=== PATIENT | female | born 1995 | race Caucasian/White ===

== ENCOUNTER → 2018-01-10 | Outpatient (CLI) | payer MEDICAID, SELFPAY, OTHER ==
[2018-01-10 12:44] LABS: BASO % 0.3 % (0.0-1.0); EOS # 0.1 10^3/uL (0.0-0.50); EOS % 0.5 % (0.0-3.0); HEMOGLOBIN 12.1 g/dl (12.0-15.5); IMMATURE GRANULOCYTE % 0.9 % (0-3.0); LYMPH # 2.5 10^3/uL (1.5-6.5); LYMPH % 25.3 % (24.0-44.0); MEAN CORPUSCULAR HEMOGLOBIN 32.5 pg (27.0-33.0); MEAN CORPUSCULAR HGB CONC 33.6 g/dl (32.0-36.5); MEAN CORPUSCULAR VOLUME 96.8 fl (80.0-96.0); MONO # 0.5 10^3/uL (0.0-0.8); MONO % 4.7 % (0.0-5.0); NEUTROPHILS # 6.8 10^3/uL (1.8-7.7); NEUTROPHILS % 68.3 % (36.0-66.0); PLATELET COUNT, AUTOMATED 264 10^3/uL (150-450); RED BLOOD COUNT 3.72 10^6/uL (4.00-5.40); RED CELL DISTRIBUTION WIDTH 12.1 % (11.5-14.5)
[2018-01-10 14:28] LABS: CHLAMYDIA DNA AMPLIFICATION POSITIVE (NEGATIVE)
[2018-01-12 11:31] LABS: RUBELLA IgG QUALITATIVE IMMUNE (IMMUNE)
[2018-01-12 11:35] LABS: HBsAg Prenatal NEGATIVE (NEGATIVE)
[2018-01-12 12:01] LABS: HIV 1&2 SCREEN CENTAUR NEGATIVE (NEGATIVE)
[2018-01-12 15:29] LABS: GC DNA AMPLIFICATION NEGATIVE (NEGATIVE)
[2018-01-12 15:29] LABS: HEPATITIS C VIRUS ABY INDEX 0.1 INDEX (<0.8)
== END ==
LOC: M LAB 11:53
DX: Z34.82 Encounter for supervision of other normal pregnancy, second trimester (principal); Z36.89 Encounter for other specified antenatal screening
CPT/HCPCS: 86762

== ENCOUNTER → 2018-02-16 | Outpatient (REF) | payer MEDICAID, OTHER ==
[2018-02-16 23:11] LABS: CHLAMYDIA DNA AMPLIFICATION NEGATIVE (NEGATIVE); GC DNA AMPLIFICATION NEGATIVE (NEGATIVE)
== END ==
LOC: M LAB REF 17:41
DX: Z34.82 Encounter for supervision of other normal pregnancy, second trimester (principal); Z11.3 Encounter for screening for infections with a predominantly sexual mode of transmission (principal); Z36.89 Encounter for other specified antenatal screening
CPT/HCPCS: 87591

== ENCOUNTER → 2018-02-23 | Outpatient (CLI) | payer MEDICAID, OTHER | LOC: M RAD 08:26 | DX: Z36.9 Encounter for antenatal screening, unspecified (principal); Z3A.25 25 weeks gestation of pregnancy | CPT/HCPCS: 76811 ==

== ENCOUNTER → 2018-03-16 | Outpatient (CLI) | payer OTHER ==
[2018-03-16 17:26] LABS: BASO % 0.2 % (0.0-1.0); EOS # 0.1 10^3/uL (0.0-0.50); EOS % 0.7 % (0.0-3.0); HEMATOCRIT 31.6 % (36.0-47.0); HEMOGLOBIN 10.9 g/dl (12.0-15.5); IMMATURE GRANULOCYTE % 0.3 % (0-3.0); LYMPH # 2.6 10^3/uL (1.5-6.5); LYMPH % 24.7 % (24.0-44.0); MEAN CORPUSCULAR HEMOGLOBIN 32.7 pg (27.0-33.0); MEAN CORPUSCULAR HGB CONC 34.5 g/dl (32.0-36.5); MEAN CORPUSCULAR VOLUME 94.9 fl (80.0-96.0); MONO # 0.6 10^3/uL (0.0-0.8); MONO % 5.3 % (0.0-5.0); NEUTROPHILS # 7.1 10^3/uL (1.8-7.7); NEUTROPHILS % 68.8 % (36.0-66.0); PLATELET COUNT, AUTOMATED 249 10^3/uL (150-450); RED BLOOD COUNT 3.33 10^6/uL (4.00-5.40); RED CELL DISTRIBUTION WIDTH 12.3 % (11.5-14.5); WHITE BLOOD COUNT 10.4 10^3/uL (4.0-10.0)
[2018-03-16 17:29] LABS: GLUCOSE CHALLENGE TEST 1 HOUR 76 MG/DL (LESS THAN 140)
[2018-03-17 08:45] LABS: RH ONLY RHOGAM 1 1
== END ==
LOC: M LAB 15:26
PROVIDERS: Pediatrics
DX: Z34.82 Encounter for supervision of other normal pregnancy, second trimester (principal); Z3A.00 Weeks of gestation of pregnancy not specified
CPT/HCPCS: 82950

== ENCOUNTER → 2018-05-06 | Outpatient (REF) | payer OTHER ==
[2018-05-06 15:53] LABS: CHLAMYDIA DNA AMPLIFICATION NEGATIVE (NEGATIVE); GC DNA AMPLIFICATION NEGATIVE (NEGATIVE)
== END ==
LOC: M LAB REF 12:54
DX: Z34.83 Encounter for supervision of other normal pregnancy, third trimester (principal); Z36.89 Encounter for other specified antenatal screening
CPT/HCPCS: 87591

== ENCOUNTER → 2018-05-13 | Outpatient (REF) | payer OTHER | LOC: M LAB REF 17:12 | DX: Z36.89 Encounter for other specified antenatal screening (principal) | CPT/HCPCS: 87186 ==

== ENCOUNTER → 2018-10-05 | Outpatient (REF) | payer OTHER ==
[~2018-10-05] MED LIST: MOTR200T44 PO; PRENTAB55 PO; TYLE325T5 PO
== END ==
LOC: M LAB REF 17:29
PROVIDERS: ATTEND Advanced Practice Midwife
DX: Z12.4 Encounter for screening for malignant neoplasm of cervix (principal)

== ENCOUNTER → 2019-06-24 | Outpatient (REF) | payer OTHER ==
[~2019-06-24] MED LIST changes: +ONDA4TAB6 PO; +PREVTAB2 PO
[2019-06-24 17:18] LABS: INFLUENZA A AMPLIFICATION NEGATIVE (NEGATIVE); INFLUENZA B AMPLIFICATION NEGATIVE (NEGATIVE)
== END ==
LOC: M LAB REF 16:24
PROVIDERS: ATTEND Physician Assistant
DX: J11.1 Influenza due to unidentified influenza virus with other respiratory manifestations (principal)

== ENCOUNTER 2019-06-25 04:01 | Emergency (ER) | payer OTHER ==
[~2019-06-25] VITALS: Ht 149.9 cm; Wt 62.7 kg
[~2019-06-25 04:01] MED LIST changes: -ONDA4TAB6 PO; -PREVTAB2 PO
[2019-06-25] MEDS ORDERED: PREVTAB2 PO (04:08)
[2019-06-25 04:58] LABS: INFLUENZA A AMPLIFICATION NEGATIVE (NEGATIVE); INFLUENZA B AMPLIFICATION NEGATIVE (NEGATIVE)
[2019-06-25] MEDS ORDERED: KETOROLAC 30 MG/ML VIAL (J1885) IV ONE (06:30)
[2019-06-25] MEDS ORDERED: NS 1,000 ML IV ONE (06:30)
[2019-06-25] MEDS ORDERED: ONDANSETRON 4MG/2ML VIAL (J2405) IV ONE (06:30)
[2019-06-25 06:49] LABS: BASO % 0.2 % (0.0-1.0); HEMATOCRIT 39.6 % (36.0-47.0); HEMOGLOBIN 13.2 g/dl (12.0-15.5); LYMPH # 0.8 10^3/uL (1.5-5.0); MEAN CORPUSCULAR HEMOGLOBIN 31.4 pg (27.0-33.0); MEAN CORPUSCULAR HGB CONC 33.3 g/dl (32.0-36.5); MEAN CORPUSCULAR VOLUME 94.3 fl (80.0-96.0); MONO # 0.5 10^3/uL (0.0-0.8); MONO % 5.1 % (0.0-5.0); NEUTROPHILS # 8.6 10^3/uL (1.5-8.5); NEUTROPHILS % 86.1 % (36.0-66.0); PLATELET COUNT, AUTOMATED 246 10^3/uL (150-450); WHITE BLOOD COUNT 9.9 10^3/uL (4.0-10.0)
[2019-06-25 07:09] LABS: BLOOD UREA NITROGEN 7 MG/DL (7-18); CALCIUM LEVEL 8.5 MG/DL (8.5-10.1); CARBON DIOXIDE LEVEL 23 MEQ/L (21-32); CHLORIDE LEVEL 103 MEQ/L (98-107); CREATININE FOR GFR 0.93 MG/DL (0.55-1.30); GLOMERULAR FILTRATION RATE > 60.0 (>60); GLUCOSE, FASTING 136 MG/DL (70-100); SODIUM LEVEL 137 MEQ/L (136-145)
--- NOTE | 2019-06-25 07:25 | REP ---
Clinical: Cough and shortness of breath. Technique: PA and lateral. Findings: Mediastinum and cardiac silhouette are normal. No focal consolidation. No effusion. No pneumothorax. Skeletal structures are intact. Impression: No focal consolidation or effusion. Electronically Signed by Mateus Reynolds MD 06/25/2019 07:17 A
[2019-06-25] MEDS ORDERED: ONDA4TAB6 PO (07:57)
[2019-06-25 08:58] VITALS: BP 128/72
== END 2019-06-25 09:04 | disposition home or self-care (01) ==
LOC: M ED 04:01
DX: J06.9 Acute upper respiratory infection, unspecified (principal); Z79.3 Long term (current) use of hormonal contraceptives
CPT/HCPCS: 71046; 80048; 84702; 85025; 87631; 96361; 96374; 96375; 99284; J1885; J2405

== ENCOUNTER → 2020-04-25 | Outpatient (REF) | payer OTHER ==
[~2020-04-25] MED LIST changes: +ONDA4TAB6 PO; +PREVTAB2 PO
[2020-04-25 16:49] LABS: BASO % 0.6 % (0.0-1.0); EOS # 0.1 10^3/uL (0.0-0.5); EOS % 1.6 % (0.0-3.0); HEMATOCRIT 40.1 % (36.0-47.0); HEMOGLOBIN 13.2 g/dl (12.0-15.5); LYMPH # 2.8 10^3/uL (1.5-5.0); LYMPH % 39.6 % (24.0-44.0); MEAN CORPUSCULAR HEMOGLOBIN 30.8 pg (27.0-33.0); MEAN CORPUSCULAR HGB CONC 32.9 g/dl (32.0-36.5); MEAN CORPUSCULAR VOLUME 93.7 fl (80.0-96.0); MONO # 0.5 10^3/uL (0.0-0.8); MONO % 6.3 % (0.0-5.0); NEUTROPHILS # 3.7 10^3/uL (1.5-8.5); NEUTROPHILS % 51.5 % (36.0-66.0); PLATELET COUNT, AUTOMATED 332 10^3/uL (150-450); RED BLOOD COUNT 4.28 10^6/uL (4.00-5.40); WHITE BLOOD COUNT 7.1 10^3/uL (4.0-10.0)
[2020-04-25 17:26] LABS: ALBUMIN 3.9 GM/DL (3.2-5.2); ALT/SGPT 22 U/L (12-78); BILIRUBIN,TOTAL 0.4 MG/DL (0.2-1.0); BLOOD UREA NITROGEN 10 MG/DL (7-18); CALCIUM LEVEL 9.1 MG/DL (8.5-10.1); CARBON DIOXIDE LEVEL 27 MEQ/L (21-32); CHLORIDE LEVEL 104 MEQ/L (98-107); CREATININE FOR GFR 0.84 MG/DL (0.55-1.30); GLOMERULAR FILTRATION RATE > 60.0 (>60); GLUCOSE, FASTING 89 MG/DL (70-100); POTASSIUM SERUM 4.2 MEQ/L (3.5-5.1); SODIUM LEVEL 138 MEQ/L (136-145); TOTAL PROTEIN 7.8 GM/DL (6.4-8.2)
== END ==
LOC: M LAB REF 16:24
PROVIDERS: ATTEND Physician Assistant
DX: R51.9 Headache, unspecified (principal)

== ENCOUNTER 2020-10-11 16:28 | Emergency (ER) | payer OTHER ==
[~2020-10-11] VITALS: Ht 144.8 cm; Wt 64.6 kg
[2020-10-11 18:10] VITALS: BP 162/87
== END 2020-10-11 18:13 | disposition home or self-care (01) ==
LOC: M ED 16:28
DX: L72.0 Epidermal cyst (principal); Z79.3 Long term (current) use of hormonal contraceptives; Z80.8 Family history of malignant neoplasm of other organs or systems; Z83.3 Family history of diabetes mellitus

== ENCOUNTER → 2021-01-04 | Outpatient (REF) | payer OTHER | LOC: M LAB REF 17:32 | PROVIDERS: ATTEND Surgery | DX: L72.11 Pilar cyst (principal) ==

== ENCOUNTER → 2021-02-08 | Outpatient (REF) | payer OTHER | LOC: M LAB REF 16:26 | PROVIDERS: ATTEND Surgery | DX: L72.11 Pilar cyst (principal) ==

== ENCOUNTER → 2021-11-14 | Outpatient (REF) ==
[2021-11-16 06:08] LABS: HERPES ZOSTER, VARICELLA IgG 281 index (Immune >165); RUBEOLA IgG ANTIBODY >300.0 AU/mL (Immune >16.4)
== END ==
LOC: M LAB 15:46
PROVIDERS: ATTEND Nurse Practitioner Family
DX: Z00.00 Encounter for general adult medical examination without abnormal findings (principal)

== ENCOUNTER 2022-10-18 08:01 | Day surgery (SDC) | payer OTHER ==
[~2022-10-18] VITALS: Ht 147.3 cm; Wt 64.4 kg
[~2022-10-18 08:01] MED LIST changes: +ARIP1TAB6 PO; +HYDR50TA70 PO; +PRAZ1CAP PO; +TEST200I14 IM; +TRAZ-257 PO; +ceFAZolin SOD 2 GM in IV 1 EA IV ONE
[2022-10-18] MEDS ORDERED: LR 1,000 ML IV SCH ×2 (08:20→11:55)
[2022-10-18 08:42] LABS: HEMOGLOBIN 16.4 g/dl (12.0-15.5); MEAN CORPUSCULAR HEMOGLOBIN 31.6 pg (27.0-33.0); MEAN CORPUSCULAR HGB CONC 34.2 g/dl (32.0-36.5); MEAN CORPUSCULAR VOLUME 92.5 fl (80.0-96.0); PLATELET COUNT, AUTOMATED 296 10^3/uL (150-450); RED BLOOD COUNT 5.19 10^6/uL (4.00-5.40); WHITE BLOOD COUNT 8.1 10^3/uL (4.0-10.0)
[2022-10-18] MEDS ORDERED: SCOPOLAMINE 1MG TRANSDERMAL PATCH TOP ONE (09:15)
[2022-10-18] MEDS ORDERED: KETOROLAC 60MG 2ML VIAL As Ordered ONE (09:23)
[2022-10-18] MEDS ORDERED: ROCURONIUM BROMIDE 50MG/5ML VIAL As Ordered ONE (09:23)
[2022-10-18] MEDS ORDERED: MIDAZOLAM INJ 2MG/2ML VIAL As Ordered ONE (09:23)
[2022-10-18] MEDS ORDERED: LIDOCAINE 2% 100MG/5ML SDV (FOR ANES.) As Ordered ONE (09:23)
[2022-10-18] MEDS ORDERED: propofoL 200 MG/20 ML VIAL As Ordered ONE (09:23)
[2022-10-18] MEDS ORDERED: SUGAMMADEX SODIUM 500 MG/5 ML VIAL (BRIDION) As Ordered ONE (09:23)
[2022-10-18] MEDS ORDERED: ONDANSETRON 4MG 2ML VIAL As Ordered ONE (09:23)
[2022-10-18] MEDS ORDERED: fentaNYL 100 MCG/2 ML INJECTION As Ordered ONE (09:24)
[2022-10-18] MEDS ORDERED: BUPIVACAINE HCL 0.25% 30ML VIAL As Ordered ONE (09:54)
[2022-10-18] MEDS ORDERED: HYDROmorphone HCL 2MG/ML 1ML VIAL As Ordered ONE (09:54)
[2022-10-18] MEDS ORDERED: METOCLOPRAMIDE INJ 10MG/2ML VIAL As Ordered ONE (10:31)
[2022-10-18] MEDS ORDERED: fentaNYL 100 MCG/2 ML INJECTION IV PRN (11:55)
[2022-10-18] MEDS ORDERED: oxyCODONE 5MG TAB PO PRN (11:55)
[2022-10-18] MEDS ORDERED: HYDROMORPHONE HCL 0.5 MG/ 0.5 ML SYRINGE IV PRN (11:55)
[2022-10-18] MEDS ORDERED: ONDANSETRON 4MG 2ML VIAL IV PRN (11:55)
[2022-10-18] MEDS ORDERED: PERCOCET 5MG/325MG TAB PO PRN (12:50)
[2022-10-18 13:30] VITALS: BP 129/65
[2022-10-18] MEDS ORDERED: KETOROLAC 30 MG/ML 1ML VIAL IV SCH (18:00)
[2022-10-19] MEDS ORDERED: OXYC1TAB23 PO (11:19)
== END 2022-10-18 13:40 | disposition home or self-care (01) ==
LOC: M SDC 08:01
PROVIDERS: ATTEND Obstetrics & Gynecology
DX: F64.9 Gender identity disorder, unspecified (principal); F43.10 Post-traumatic stress disorder, unspecified; F41.9 Anxiety disorder, unspecified; F32.A Depression, unspecified; Z87.891 Personal history of nicotine dependence; Z79.899 Other long term (current) drug therapy
CPT/HCPCS: 36415; 58571; 81025; 85027; 86850; 86900; 86901; 88307; J0690; J1100; J1170; J1885; J2250; J2405; J2765; J3010; S2900

== ENCOUNTER 2022-12-24 16:54 | Emergency (ER) | payer OTHER ==
[~2022-12-24] VITALS: Ht 147.3 cm; Wt 63.6 kg
[2022-12-24 16:54] VITALS: BP 128/81; TEMP 98; O2SAT 96
[~2022-12-24 16:54] MED LIST changes: +OXYC1TAB23 PO; -ceFAZolin SOD 2 GM in IV 1 EA IV ONE
== END 2022-12-24 21:40 | disposition left against medical advice (07) ==
LOC: M ED 16:54
DX: Z53.21 Procedure and treatment not carried out due to patient leaving prior to being seen by health care provider (principal)

== ENCOUNTER 2023-09-08 23:09 | Emergency (ER) | payer OTHER ==
[~2023-09-08] VITALS: Ht 144.8 cm; Wt 66.5 kg
[2023-09-09] MEDS ORDERED: IBUP-1022 PO (01:28)
[2023-09-09 01:51] VITALS: BP 139/81; TEMP 98.7; O2SAT 99
[2023-09-09] MEDS: IBUPROFEN 600MG TAB PO ONE (02:15)
== END 2023-09-09 02:36 | disposition home or self-care (01) ==
LOC: M ED 23:09
DX: S93.402A Sprain of unspecified ligament of left ankle, initial encounter (principal); W09.8XXA Fall on or from other playground equipment, initial encounter; F41.9 Anxiety disorder, unspecified; F32.A Depression, unspecified; Z79.899 Other long term (current) drug therapy; Z79.83 Long term (current) use of bisphosphonates; Y92.838 Other recreation area as the place of occurrence of the external cause; Y93.89 Activity, other specified; Y99.9 Unspecified external cause status; Z79.891 Long term (current) use of opiate analgesic

== ENCOUNTER → 2023-12-29 | Outpatient (REF) | payer OTHER ==
[~2023-12-29] MED LIST changes: +IBUP-1022 PO; +ONDA-282 PO; -ONDA4TAB6 PO
[2023-12-30 08:01] LABS: ALBUMIN 4.5 G/DL (3.2-5.2); ALKALINE PHOSPHATASE 86 U/L (46-116); ALT/SGPT 23 U/L (7.0-40); AST/SGOT 17 U/L (<34); BILIRUBIN,TOTAL 0.7 MG/DL (0.3-1.2); BLOOD UREA NITROGEN 15 MG/DL (9-23); CALCIUM LEVEL 9.7 MG/DL (8.5-10.1); CARBON DIOXIDE LEVEL 29 MMOL/L (20-31); CHLORIDE LEVEL 105 MMOL/L (98-107); CREATININE FOR GFR 1.08 MG/DL (0.70-1.30); GLOMERULAR FILTRATION RATE > 60.0 (>60); GLUCOSE, FASTING 87 MG/DL (60-100); POTASSIUM SERUM 4.5 MMOL/L (3.5-5.1); SODIUM LEVEL 142 MMOL/L (136-145); TOTAL PROTEIN 7.4 G/DL (5.7-8.2)
[2023-12-30 08:04] LABS: THYROID STIMULATING HORMONE 1.213 uIU/ML (0.55-4.78)
[2023-12-30 09:05] LABS: HEMOGLOBIN A1c 5.1 % (4.0-6.0)
== END ==
LOC: M LAB REF 15:15
PROVIDERS: ATTEND Pediatrics
DX: E66.9 Obesity, unspecified (principal)

== ENCOUNTER → 2024-03-03 | Outpatient (CLI) | payer OTHER ==
[2024-03-03 16:54] LABS: BASO % 0.4 % (0.0-1.0); EOS # 0.1 10^3/uL (0.0-0.5); EOS % 1.7 % (0.0-3.0); HEMATOCRIT 44.9 % (42.0-52.0); HEMOGLOBIN 15.8 g/dl (13.5-17.5); LYMPH # 2.8 10^3/uL (1.5-5.0); LYMPH % 39.1 % (24.0-44.0); MEAN CORPUSCULAR HEMOGLOBIN 32.2 pg (27.0-33.0); MEAN CORPUSCULAR HGB CONC 35.2 g/dl (32.0-36.5); MEAN CORPUSCULAR VOLUME 91.4 fl (80.0-96.0); MONO # 0.5 10^3/uL (0.0-0.8); MONO % 7.2 % (2.0-8.0); NEUTROPHILS # 3.6 10^3/uL (1.5-8.5); NEUTROPHILS % 51.2 % (36.0-66.0); PLATELET COUNT, AUTOMATED 278 10^3/uL (150-450); RED BLOOD COUNT 4.91 10^6/uL (4.30-6.10); WHITE BLOOD COUNT 7.1 10^3/uL (4.0-10.0)
[2024-03-03 17:22] LABS: ALBUMIN 4.4 G/DL (3.2-5.2); ALKALINE PHOSPHATASE 91 U/L (46-116); ALT/SGPT 26 U/L (7.0-40); AST/SGOT 19 U/L (<34); BILIRUBIN,TOTAL 0.4 MG/DL (0.3-1.2); BLOOD UREA NITROGEN 13 MG/DL (9-23); CALCIUM LEVEL 9.9 MG/DL (8.5-10.1); CARBON DIOXIDE LEVEL 28 MMOL/L (20-31); CHLORIDE LEVEL 105 MMOL/L (98-107); CREATININE FOR GFR 0.86 MG/DL (0.70-1.30); GLOMERULAR FILTRATION RATE > 60.0 (>60); GLUCOSE, FASTING 110 MG/DL (60-100); MAGNESIUM LEVEL 2.1 MG/DL (1.8-2.4); POTASSIUM SERUM 4.2 MMOL/L (3.5-5.1); SODIUM LEVEL 137 MMOL/L (136-145); TOTAL PROTEIN 7.7 G/DL (5.7-8.2)
[2024-03-03 17:23] LABS: IRON (FE) 72 UG/DL (65-175); THYROID STIMULATING HORMONE 0.816 uIU/ML (0.55-4.78)
[2024-03-03 17:24] LABS: FERRITIN 90.8 NG/ML (10.5-307.3); FREE T4 0.98 NG/DL (0.89-1.76); TOTAL 25(OH) VITAMIN D 30.1 NG/ML (20.0-100.0)
[2024-03-03 17:25] LABS: VITAMIN B12 LEVEL 396 PG/ML (211-911)
== END ==
LOC: M LAB 16:01
PROVIDERS: ATTEND Nurse Practitioner Psychiatric/Mental Health
DX: Z79.899 Other long term (current) drug therapy (principal)

== ENCOUNTER → 2024-03-26 | Outpatient (CLI) | payer OTHER ==
[2024-03-26 11:24] LABS: HEMATOCRIT 47.3 % (42.0-52.0); HEMOGLOBIN 16.4 g/dl (13.5-17.5); MEAN CORPUSCULAR HEMOGLOBIN 32.3 pg (27.0-33.0); MEAN CORPUSCULAR HGB CONC 34.7 g/dl (32.0-36.5); MEAN CORPUSCULAR VOLUME 93.1 fl (80.0-96.0); PLATELET COUNT, AUTOMATED 295 10^3/uL (150-450); RED BLOOD COUNT 5.08 10^6/uL (4.30-6.10); WHITE BLOOD COUNT 6.1 10^3/uL (4.0-10.0)
[2024-03-26 11:51] LABS: BLOOD UREA NITROGEN 14 MG/DL (9-23); CALCIUM LEVEL 10.2 MG/DL (8.5-10.1); CARBON DIOXIDE LEVEL 30 MMOL/L (20-31); CHLORIDE LEVEL 107 MMOL/L (98-107); CREATININE FOR GFR 1.24 MG/DL (0.70-1.30); GLOMERULAR FILTRATION RATE > 60.0 (>60); GLUCOSE, FASTING 94 MG/DL (60-100); POTASSIUM SERUM 4.4 MMOL/L (3.5-5.1); SODIUM LEVEL 142 MMOL/L (136-145)
== END ==
LOC: M LAB 10:55
PROVIDERS: ATTEND Physician Assistant
DX: N62 Hypertrophy of breast (principal)

== ENCOUNTER 2024-04-08 05:47 | Observation (INO) | payer OTHER ==
[~2024-04-08] VITALS: Ht 144.8 cm; Wt 64.0 kg
[2024-04-08] VITALS (9 sets, daily range): BP systolic 117–124; BP diastolic 64–80; TEMP 97.2–97.7; O2SAT 91–99
[~2024-04-08 05:47] MED LIST changes: +VITA100093 PO; +WELLTAB38 PO
[2024-04-08 06:44] LABS: HEMATOCRIT 46.2 % (42.0-52.0); MEAN CORPUSCULAR HEMOGLOBIN 32.2 pg (27.0-33.0); MEAN CORPUSCULAR HGB CONC 34.6 g/dl (32.0-36.5); PLATELET COUNT, AUTOMATED 271 10^3/uL (150-450); RED BLOOD COUNT 4.97 10^6/uL (4.30-6.10); WHITE BLOOD COUNT 6.5 10^3/uL (4.0-10.0)
[2024-04-08 06:57] LABS: BLOOD UREA NITROGEN 13 MG/DL (9-23); CALCIUM LEVEL 9.8 MG/DL (8.5-10.1); CARBON DIOXIDE LEVEL 29 MMOL/L (20-31); CHLORIDE LEVEL 107 MMOL/L (98-107); CREATININE FOR GFR 1.17 MG/DL (0.70-1.30); GLOMERULAR FILTRATION RATE > 60.0 (>60); GLUCOSE, FASTING 87 MG/DL (60-100); POTASSIUM SERUM 4.2 MMOL/L (3.5-5.1); SODIUM LEVEL 141 MMOL/L (136-145)
[2024-04-08] MEDS ORDERED: MIDAZOLAM INJ 2MG/2ML VIAL As Ordered ONE (07:10)
[2024-04-08] MEDS ORDERED: ROCURONIUM BROMIDE 50MG/5ML VIAL As Ordered ONE (07:10)
[2024-04-08] MEDS ORDERED: ONDANSETRON 4MG 2ML VIAL As Ordered ONE (07:10)
[2024-04-08] MEDS ORDERED: fentaNYL 100 MCG/2 ML INJECTION As Ordered ONE (07:10)
[2024-04-08] MEDS ORDERED: LIDOCAINE 2% 100MG/5ML SDV (FOR ANES.) As Ordered ONE (07:10)
[2024-04-08] MEDS ORDERED: propofoL 200 MG/20 ML VIAL As Ordered ONE (07:10)
[2024-04-08] MEDS ORDERED: VASOPRESSIN INJ 20UNITS/ML 1ML VIAL As Ordered ONE (07:11)
[2024-04-08] MEDS ORDERED: dexmedeTOMIDine (4MCG/ML)200MCG/50ML BTL (PRECEDEX) As Ordered ONE (07:11)
[2024-04-08] MEDS: ceFAZolin SOD 2 GM in IV 1 EA IV ONE (07:47)
[2024-04-08] MEDS ORDERED: LIDOCAINE 1% SDV 5ML VIAL SC PRN (07:55)
[2024-04-08] MEDS ORDERED: NS 250 ML IV SCH (07:55)
[2024-04-08] MEDS: HEPARIN SOD (PORCINE) 5000UNITS/ML 1ML VIAL/SYRINGE SQ ONE (08:01)
[2024-04-08] MEDS ORDERED: ESMOLOL INJ 100MG/10ML VIAL As Ordered ONE (08:23)
[2024-04-08] MEDS ORDERED: ACETAMINOPHEN 1000MG 100ML IV BAG As Ordered ONE (10:27)
[2024-04-08] MEDS: GENTAMICIN SULF 80MG/2ML VIAL As Ordered ONE (10:32)
[2024-04-08] MEDS ORDERED: ePHEDrine SULFATE 25 MG/5 ML(5MG/ML) SYRINGE As Ordered ONE (10:40)
[2024-04-08] MEDS ORDERED: fentaNYL 100 MCG/2 ML INJECTION IV PRN (10:55)
[2024-04-08] MEDS ORDERED: NS 1,000 ML IV SCH (10:55)
[2024-04-08] MEDS: LR 1,000 ML IV SCH (11:15)
[2024-04-08] MEDS: HYDROMORPHONE HCL 0.5 MG/ 0.5 ML SYRINGE IV PRN (11:44)
[2024-04-08] MEDS: oxyCODONE 5MG TAB PO PRN (11:44)
[2024-04-08] MEDS: ceFAZolin SOD 2 GM in IV 1 EA IV SCH (15:56)
[2024-04-08] MEDS: traMADol 50 MG TAB PO PRN (16:03)
[2024-04-08] MEDS: ONDANSETRON 4MG 2ML VIAL IV PRN (17:40)
[2024-04-08] MEDS: PERCOCET 5MG/325MG TAB PO PRN (23:48)
[2024-04-09 03:55] VITALS: BP 126/79; TEMP 97.7; O2SAT 97
[2024-04-09] MEDS ORDERED: MED REC IN PROGRESS XX SCH (07:40)
[2024-04-09 08:45] VITALS: BP 122/80; TEMP 97.5; O2SAT 98
[2024-04-09] MEDS ORDERED: HYDR1CAP25 PO (09:24)
[2024-04-09] MEDS ORDERED: VITA200030 PO (09:24)
[2024-04-09] MEDS ORDERED: TRAZ-252 PO (09:24)
[2024-04-09] MEDS ORDERED: HOME MED LIST COMPLETE! XX SCH (09:25)
[2024-04-09] MEDS ORDERED: PERCOCET PO (09:51)
[2024-04-09] MEDS: ACETAMINOPHEN 325 MG TAB PO PRN (09:55)
== END 2024-04-09 10:30 | disposition home or self-care (01) ==
LOC: M SDC 05:47 → M RR INP 11:11 → M MS5PR 12:25
PROVIDERS: ADMIT Plastic Surgery Surgery of the Hand; ATTEND Plastic Surgery Surgery of the Hand
DX: F64.9 Gender identity disorder, unspecified (principal); N62 Hypertrophy of breast; M25.511 Pain in right shoulder; F43.10 Post-traumatic stress disorder, unspecified; Z79.899 Other long term (current) drug therapy
CPT/HCPCS: 19318; 36415; 80048; 85027; 88305; C9290; J0131; J0665; J0690; J1100; J1171; J1580; J1805; J2250; J2405; J2598; J3010

== ENCOUNTER → 2024-10-11 | Outpatient (REF) | payer OTHER ==
[~2024-10-11] MED LIST changes: +HYDR1CAP25 PO; +PERCOCET PO; +TRAZ-252 PO; +VITA200030 PO
[2024-10-11 17:20] LABS: BACTERIA, URINE AUTO NEGATIVE (NEGATIVE); RBC, URINE AUTO 2 /HPF (0-3); SQUAMOUS EPITHELIAL CELL UR AU 1 /HPF (0-6); TRANSITIONAL EPITHELIAL AUTO <1 /HPF; WBC, URINE AUTO 13 /HPF (0-3)
[2024-10-11 17:43] LABS: TOTAL PROTEIN,RANDOM URINE 11.9 MG/DL (0.0-14.0)
[2024-10-11 17:48] LABS: CREATININE,RANDOM URINE 152.6 MG/DL
== END ==
LOC: M LAB REF 16:48
PROVIDERS: ATTEND Internal Medicine Nephrology
DX: N18.2 Chronic kidney disease, stage 2 (mild) (principal)

== ENCOUNTER → 2024-10-12 | Outpatient (REF) | payer OTHER ==
[2024-10-13 18:13] LABS: CREATININE, SERUM 1.2 MG/DL (0.70-1.30)
[2024-10-13 18:40] LABS: CREATININE CLEARANCE, URINE 54.9 ML/MIN (85-125); CREATININE, URINE 82.5 MG/DL
== END ==
LOC: M LAB REF 17:26
PROVIDERS: ATTEND Internal Medicine Nephrology
DX: N18.2 Chronic kidney disease, stage 2 (mild) (principal)

== ENCOUNTER → 2024-12-21 | Outpatient (REF) | LOC: M PLAIMG 14:39 | PROVIDERS: ATTEND Internal Medicine | DX: R52 Pain, unspecified (principal) ==

== ENCOUNTER 2025-04-09 20:49 | Emergency (ER) | payer OTHER ==
[~2025-04-09] VITALS: Ht 148.6 cm; Wt 70.7 kg
[~2025-04-09 20:49] MED LIST changes: -IBUP-1022 PO; +IBUP600T42 PO
[2025-04-09] MEDS: ALBUTEROL 90 MCG/ACT 8 GM HFA INHALER INH ONE (21:55)
[2025-04-09] MEDS ORDERED: BENZ200C70 PO (23:40)
[2025-04-09] MEDS ORDERED: VENTAER INH (23:40)
[2025-04-09 23:46] VITALS: BP 133/83; TEMP 96; O2SAT 95
== END 2025-04-09 23:47 | disposition home or self-care (01) ==
LOC: M ED 20:49
DX: J06.9 Acute upper respiratory infection, unspecified (principal); J98.01 Acute bronchospasm; B34.8 Other viral infections of unspecified site; Z79.899 Other long term (current) drug therapy; Z79.890 Hormone replacement therapy

== ENCOUNTER → 2025-05-31 | Outpatient (REF) | payer OTHER ==
[~2025-05-31] MED LIST changes: +BENZ200C70 PO; +VENTAER INH
== END ==
LOC: M LAB REF 10:37
PROVIDERS: ATTEND Physician Assistant
DX: B34.9 Viral infection, unspecified (principal)